=== PATIENT | male | born 1970 | race Caucasian/White ===

== ENCOUNTER 2024-07-25 16:47 | Emergency (ER) | payer OTHER ==
[~2024-07-25] VITALS: Ht 188 cm; Wt 145.6 kg
[~2024-07-25 16:47] MED LIST: ASPIR-LOW81 MG PO; GABAPENTIN300 MG PO; GLUCOPHAGE500 MG PO; LANTUS100 UNITS/ SUB-Q; MUPIROCIN22 GM TOP; OMEPRAZOLE20 M1 PO; ZESTRIL5 MG PO; ZOLOFT50 MG PO
[2024-07-25] MEDS ORDERED: INSULIN GLARGINE-YFGN 100 UNIT/ML ML SUB-Q ONE (19:30)
[2024-07-25] MEDS ORDERED: LEVEMIR100 UNIT/1 SUB-Q (19:31)
[2024-07-25] MEDS ORDERED: HUMULIN N100 UNIT/1 SUB-Q (19:39)
[2024-07-25] MEDS ORDERED: INSULIN SYRING MISC (19:39)
[2024-07-25 19:50] VITALS: BP 114/99
== END 2024-07-25 19:50 | disposition home or self-care (01) ==
LOC: ED 16:47
DX: E11.65 Type 2 diabetes mellitus with hyperglycemia (principal); T38.3X6A Underdosing of insulin and oral hypoglycemic [antidiabetic] drugs, initial encounter; I10 Essential (primary) hypertension; F17.200 Nicotine dependence, unspecified, uncomplicated; E66.9 Obesity, unspecified; Z91.141 Patient's other noncompliance with medication regimen due to financial hardship; Z79.84 Long term (current) use of oral hypoglycemic drugs; Z79.82 Long term (current) use of aspirin; Z79.899 Other long term (current) drug therapy
CPT/HCPCS: 99284; A9270